=== PATIENT | female | born 1980 | race Caucasian/White ===

== ENCOUNTER 2016-09-02 22:15 | Emergency (ER) | payer OTHER ==
[~2016-09-02] VITALS: Ht 165.1 cm; Wt 64.9 kg
[~2016-09-02 22:15] MED LIST: AMIT10TA PO; AMIT25TA PO; CITA20TA9 PO; DIPH25CA58 PO; NORE-88 PO
[2016-09-02 23:00] LABS: BILIRUBIN,URINE NEGATIVE (NEG); GLUCOSE,URINE NEGATIVE (NEG); NITRITE,URINE NEGATIVE (NEG); PH,URINE 5.5; PROTEIN,URINE NEGATIVE (NEG-TRACE); UROBILINOGEN,URINE 0.2 mg/dL (0.2 mg/dL)
[2016-09-02 23:01] LABS: BASO % 0 % (0-3); EOS % 2 % (0-3); HEMATOCRIT 39.3 % (36.0-47.0); HEMOGLOBIN 13.3 g/dL (12.0-15.5); LYMPH # 5.4 x10^3/uL (1.0-4.8); LYMPH % 49 % (24-48); MEAN CORPUSCULAR HEMOGLOBIN 31 pg (25-35); MEAN CORPUSCULAR HGB CONC 34 g/dL (31-37); MEAN CORPUSCULAR VOLUME 92 fL (79-100); MONO % 5 % (0-9); NEUT % 43 % (31-73); PLATELET COUNT 205 x10^3/uL (140-400); RED BLOOD COUNT 4.26 x10^6/uL (3.50-5.40); RED CELL DISTRIBUTION WIDTH 12.4 % (11.5-14.5); WHITE BLOOD COUNT 11.2 x10^3/uL (4.0-11.0)
[2016-09-02 23:02] VITALS: BP 114/74
[2016-09-02 23:06] LABS: BACTERIA,URINE FEW /HPF (0-FEW); RBC,URINE 0 /HPF (0-2); SQUAMOUS EPITHELIAL CELL,UR MOD /LPF; WBC,URINE OCC /HPF (0-4)
[2016-09-02 23:11] LABS: CREATININE 0.9 mg/dL (0.6-1.0); GFR 71.7; POTASSIUM 3.5 mmol/L (3.5-5.1)
[2016-09-02] MEDS ORDERED: IV NORMAL SALINE 1000ML BAG 1,000 ML IV ONE (23:15)
[2016-09-02] MEDS ORDERED: traMADol 50 MG TABLET PO ONE (23:15)
[2016-09-02] MEDS ORDERED: ONDANSETRON PF 4 MG/2 ML VIAL. IV ONE (23:15)
[2016-09-02 23:17] LABS: ALBUMIN/GLOBULIN RATIO 1.1 (1.0-1.7); TOTAL BILIRUBIN 0.3 mg/dL (0.2-1.0); TOTAL PROTEIN 7.5 g/dL (6.4-8.2)
--- NOTE | 2016-09-03 | RAD ---
INDICATION: RIGHT FLANK PAIN X TONIGHT COMPARISON: May 03, 2014 TECHNIQUE: Axial CT images were obtained through the abdomen and pelvis without intravenous contrast. Limited assessment of solid organ structures and vasculature secondary to lack of intravenous contrast. One or more of the following individualized dose reduction techniques were utilized for this examination: 1. Automated exposure control; 2. Adjustment of the mA and/or kV according to patient size; 3. Use of iterative reconstruction technique. FINDINGS: Abdomen: Chest Base: Right lung base nodule again seen measuring approximately 9 mm. Vessels: Mild calcific atherosclerosis. Liver/Biliary: Mildly low attenuation. Pancreas: No peripancreatic edema. Spleen: Normal. Kidneys/Adrenal: No hydronephrosis. GI: No free air. No bowel dilation to suggest obstruction. Pelvis: Bladder: No definite adjacent inflammation. Small free fluid IMPRESSION: 1. No hydronephrosis. There are couple of calcifications within the pelvis bilaterally but suspect that this is from phleboliths given lack of more proximal hydronephrosis. 2. Redemonstration of 9 mm nodule at right lung base. 3. Low attenuation of the liver. Nonspecific but frequently secondary to fatty infiltration. 4. Small free fluid in pelvis. Electronically signed by: Tian Funes MD (09/02/2016 11:56 PM)
--- NOTE | 2016-09-03 00:20 | PHYS DOC ---
Past Medical History Past Medical History: Anxiety, Endometriosis, Kidney Stone, Other Additional Past Medical Histor: endometriosis Past Surgical History: Appendectomy, Cholecystectomy Additional Past Surgical Histo: endometriosis, lithrotrypsy Alcohol Use: None Drug Use: None Adult General Chief Complaint Chief Complaint: ABDOMINAL PAIN HPI HPI Patient is a 36 year old female with history significant for kidney stones in the past as well as endometriosis, cholecystectomy, appendectomy, status post C- section 6 months ago who presents here today complaining of lower back pain radiating to her groin that feels similar to her prior kidney stones in the past. Patient reports her last was approximately 2 years ago. Patient denies any other symptomatology at this time. Patient has any fevers shakes chills. Patient has any vomiting or diarrhea. Patient reports she does have some nausea and dysuria. Patient denies any frequency or urgency. Patient reports decreased urinary output. Patient has any hematuria but she reports that her urine has been dark. She physical exam was significant for tenderness to palpation to her right flank as well as pain radiating to her right groin region. Patient had normal active bowel sounds. Patient has no rebound or guarding. Patient does not present with any signs or symptoms of be consistent with an acute surgical abdomen. Assessment and plan Right flank pain of unclear etiology. Patient signed out AGAINST MEDICAL ADVICE prior to her test results being red. Patient's CT scan revealed no hydronephrosis no evidence of obstructive disease to her kidneys. Patient had really the insertion of her 9 mm nodule in her right lung base. There is no other acute pathology noted on the CT scan. Patient did leave prior to the CT scan report being red. Patient reported that she had severe intolerable pain to her right flank area. She was given Ultram to assist her with the pain however she reports that it did not help at all and is requesting something stronger. Patient reports that she is allergic to Toradol that makes her feel funny. I discussed with the patient that upon my evaluation of the CT scan I did not see any stone or any indication of be given narcotic pain medication at this point. I discussed with her that I think the pain that she's having is most likely secondary to mechanical strain and that I want to give her some Flexeril and ibuprofen in the ED as well as the same to go home with. I did tell her that I want to wait for the official CT report that is being read by the radiologist to make sure there wasn't any other pathology that is being missed. Shortly after having a discussion with the patient the patient told the nurse that she needed to leave AGAINST MEDICAL ADVICE because of some family emergency. Although not confirmed the do have some suspicion that the patient might be drug -seeking. I was not able to have a chance to reevaluate the patient prior to her leaving secondary to leaving abruptly. Review of Systems Review of Systems Constitutional: Denies fever or chills [] Eyes: Denies change in visual acuity, redness, or eye pain [] HENT: Denies nasal congestion or sore throat [] All other review systems are negative except as documented in the history of present illness portion. Current Medications Current Medications Current Medications Medications (Trade) Dose Ordered Sig/[facility] Start Time Stop Time Status Last Admin Dose Admin Ondansetron HCl (Zofran) 4 mg 1X ONCE 09/02/16 23:15 09/02/16 23:16 DC 09/02/16 23:00 4 MG Sodium Chloride 1,000 ml @ 1,000 mls/hr 1X ONCE 09/02/16 23:15 09/03/16 00:09 DC 09/02/16 23:00 1,000 MLS/HR Tramadol HCl (Ultram) 50 mg 1X ONCE 09/02/16 23:15 09/02/16 23:16 DC 09/02/16 23:00 50 MG Allergies Allergies Allergies Coded Allergies Type Severity Reaction Last Updated Verified iodine Allergy Intermediate 11/11/13 Yes ketorolac Allergy Intermediate 08/16/14 Yes morphine Allergy Intermediate 12/30/13 Yes Physical Exam Physical Exam Constitutional: Well developed, well nourished, no acute distress, non-toxic appearance. [] HENT: Normocephalic, atraumatic, bilateral external ears normal, oropharynx moist, no oral exudates, nose normal. [] Eyes: PERRLA, EOMI, conjunctiva normal, no discharge. [] Neck: Normal range of motion, no tenderness, supple, no stridor. [] Cardiovascular:Heart rate regular rhythm, Lungs & Thorax: Bilateral breath sounds clear to auscultation [] Abdomen: Bowel sounds normal, soft, no tenderness, no masses, no pulsatile masses. [] Skin: Warm, dry, no erythema, no rash. [] Extremities: No tenderness, no cyanosis, no clubbing, ROM intact, no edema. [] Neurologic: Alert and oriented X 3, normal motor function, normal sensory function, no focal deficits noted. [] Psychologic: Affect normal, judgement normal, mood normal. [] Current Patient Data Vital Signs Vital Signs Date Time Temp Pulse Resp B/P (MAP) Pulse Ox O2 Delivery O2 Flow Rate FiO2 09/02/16 23:02 88 20 114/74 (87) 97 Room Air 09/02/16 22:25 97.8 97.8 Lab Values Laboratory Tests Test 09/02/16 21:46 09/02/16 22:34 POC Urine HCG, Qualitative Hcg negative (Negative) White Blood Count 11.2 x10^3/uL (4.0-11.0) H Red Blood Count 4.26 x10^6/uL (3.50-5.40) Hemoglobin 13.3 g/dL (12.0-15.5) Hematocrit 39.3 % (36.0-47.0) Mean Corpuscular Volume 92 fL (79-100) Mean Corpuscular Hemoglobin 31 pg (25-35) Mean Corpuscular Hemoglobin Concent 34 g/dL (31-37) Red Cell Distribution Width 12.4 % (11.5-14.5) Platelet Count 205 x10^3/uL (140-400) Neutrophils (%) (Auto) 43 % (31-73) Lymphocytes (%) (Auto) 49 % (24-48) H Monocytes (%) (Auto) 5 % (0-9) Eosinophils (%) (Auto) 2 % (0-3) Basophils (%) (Auto) 0 % (0-3) Neutrophils # (Auto) 4.8 x10^3uL (1.8-7.7) Lymphocytes # (Auto) 5.4 x10^3/uL (1.0-4.8) H Monocytes # (Auto) 0.6 x10^3/uL (0.0-1.1) Eosinophils # (Auto) 0.3 x10^3/uL (0.0-0.7) Basophils # (Auto) 0.0 x10^3/uL (0.0-0.2) Urine Collection Type Unknown Urine Color Yellow Urine Clarity Clear Urine pH 5.5 Urine Specific [place] 1.025 Urine Protein Negative mg/dL (NEG-TRACE) Urine Glucose (UA) Negative mg/dL (NEG) Urine Ketones (Stick) Negative mg/dL (NEG) Urine Blood Negative (NEG) Urine Nitrite Negative (NEG) Urine Bilirubin Negative (NEG) Urine Urobilinogen Dipstick 0.2 mg/dL (0.2 mg/dL) Urine Leukocyte Esterase Negative (NEG) Urine RBC 0 /HPF (0-2) Urine WBC Occ /HPF (0-4) Urine Squamous Epithelial Cells Mod /LPF Urine Bacteria Few /HPF (0-FEW) Urine Mucus Marked /LPF Sodium Level 141 mmol/L (136-145) Potassium Level 3.5 mmol/L (3.5-5.1) Chloride Level 104 mmol/L (98-107) Carbon Dioxide Level 27 mmol/L (21-32) Anion Gap 10 (6-14) Blood Urea Nitrogen 12 mg/dL (7-20) Creatinine 0.9 mg/dL (0.6-1.0) Estimated GFR (Cockcroft-Gault) 71.7 BUN/Creatinine Ratio 13 (6-20) Glucose Level 85 mg/dL (70-99) Calcium Level 9.0 mg/dL (8.5-10.1) Total Bilirubin 0.3 mg/dL (0.2-1.0) Aspartate Amino Transferase (AST) 19 U/L (15-37) Alanine Aminotransferase (ALT) 32 U/L (14-59) Alkaline Phosphatase 62 U/L (46-116) Total Protein 7.5 g/dL (6.4-8.2) Albumin 4.0 g/dL (3.4-5.0) Albumin/Globulin Ratio 1.1 (1.0-1.7) Lipase 128 U/L (73-393) Laboratory Tests 09/02/16 22:34 Laboratory Tests 09/02/16 22:34 EKG EKG [] Radiology/Procedures Radiology/Procedures [] Course & Med Decision Making Course & Med Decision Making Pertinent Labs and Imaging studies reviewed. (See chart for details) [] Dragon Disclaimer Dragon Disclaimer This electronic medical record was generated, in whole or in part, using a voice recognition dictation system. Departure Departure Impression: Primary Impression: Left against medical advice Additional Impressions: Chronic flank pain Flank pain Disposition: 07 AGAINST MEDICAL ADVICE Condition: STABLE Problem Qualifiers SEPIDEH LOAIZA MD 18, 2017 00:20
== END 2016-09-03 00:09 | disposition left against medical advice (07) ==
LOC: ER 22:15
DX: G89.29 Other chronic pain (principal); R10.30 Lower abdominal pain, unspecified; M54.5 Low back pain; Z87.442 Personal history of urinary calculi; Z90.49 Acquired absence of other specified parts of digestive tract; Z88.5 Allergy status to narcotic agent; Z88.8 Allergy status to other drugs, medicaments and biological substances; Z91.041 Radiographic dye allergy status
CPT/HCPCS: 36415; 74176; 80053; 81001; 81025; 83690; 85027; 96361; 96374; 99285; J2405; J7030

== ENCOUNTER 2017-05-06 15:03 | Emergency (ER) | payer OTHER ==
[2017-05-06 17:20] LABS: ADD MAN DIFF? NO; BILIRUBIN,URINE SMALL (NEG); CLARITY,URINE CLEAR; COLOR,URINE AMBER; GLUCOSE,URINE NEGATIVE (NEG); NITRITE,URINE NEGATIVE (NEG); PROTEIN,URINE NEGATIVE (NEG-TRACE)
[2017-05-06 17:22] LABS: BASO % 1 % (0-3); EOS # 0.1 x10^3/uL (0.0-0.7); EOS % 1 % (0-3); HEMATOCRIT 42.3 % (36.0-47.0); HEMOGLOBIN 14.4 g/dL (12.0-15.5); LYMPH # 1.8 x10^3/uL (1.0-4.8); LYMPH % 19 % (24-48); MEAN CORPUSCULAR HEMOGLOBIN 31 pg (25-35); MEAN CORPUSCULAR HGB CONC 34 g/dL (31-37); MEAN CORPUSCULAR VOLUME 92 fL (79-100); MONO # 0.7 x10^3/uL (0.0-1.1); MONO % 7 % (0-9); NEUT # 6.7 x10^3uL (1.8-7.7); NEUT % 72 % (31-73); PLATELET COUNT 141 x10^3/uL (140-400); RED CELL DISTRIBUTION WIDTH 12.3 % (11.5-14.5); WHITE BLOOD COUNT 9.3 x10^3/uL (4.0-11.0)
[2017-05-06 17:32] LABS: BACTERIA,URINE 0 /HPF (0-FEW); SQUAMOUS EPITHELIAL CELL,UR MOD /LPF; WBC,URINE 0 /HPF (0-4)
[2017-05-06 17:35] LABS: NEG OBC UR NEG; POS OBC UR POS; U PREG PATIENT NEGATIVE (NEG)
[2017-05-06 17:38] LABS: ANION GAP 7 (6-14); BLOOD UREA NITROGEN 7 mg/dL (7-20); BUN/CREATININE RATIO 9 (6-20); CALCIUM 8.6 mg/dL (8.5-10.1); CARBON DIOXIDE 27 mmol/L (21-32); CHLORIDE 103 mmol/L (98-107); CREATININE 0.8 mg/dL (0.6-1.0); GFR 82.1; GLUCOSE 97 mg/dL (70-99); POTASSIUM 3.9 mmol/L (3.5-5.1); SODIUM 137 mmol/L (136-145)
[2017-05-06 17:43] LABS: INFLUENZA A PATIENT NEGATIVE (NEGATIVE); INFLUENZA B PATIENT NEGATIVE (NEGATIVE); OBC FLU VALID
[2017-05-06 17:46] LABS: ALBUMIN 3.8 g/dL (3.4-5.0); ALBUMIN/GLOBULIN RATIO 1.1 (1.0-1.7); ALK PHOS 97 U/L (46-116); ALT (SGPT) 65 U/L (14-59); AST (SGOT) 29 U/L (15-37); TOTAL BILIRUBIN 0.5 mg/dL (0.2-1.0); TOTAL PROTEIN 7.3 g/dL (6.4-8.2)
[2017-05-06] MEDS: fentaNYL PF VIAL 100 MCG/2 ML VIAL IM ×2 (18:13)
[2017-05-06] MEDS: DEXAMETHASONE SOD PHOS 4 MG/ML VIAL IM ×2 (18:49)
== END 2017-05-06 19:01 | disposition home or self-care (01) ==
LOC: ER 15:03
DX: J32.9 Chronic sinusitis, unspecified (principal); Z88.5 Allergy status to narcotic agent; Z88.6 Allergy status to analgesic agent; Z91.041 Radiographic dye allergy status
CPT/HCPCS: 36415; 70486; 80053; 81001; 81025; 85025; 87804; 87804-59; 96372; 99285-25; J1100; J3010

== ENCOUNTER 2017-09-09 22:43 | Emergency (ER) | payer OTHER ==
[2017-09-10] MEDS: LIDOCAINE WITH 8.4% SOD BICARB 3 ML DISP.SYRIN. INJ (00:40)
[2017-09-10] MEDS: DIPHTH,PERTUSS(ACELL),TET TOX 0.5 ML DISP.SYRIN. VAX IM (00:42)
== END 2017-09-10 01:22 | disposition home or self-care (01) ==
LOC: ER 09-10 01:22
DX: S61.211A Laceration without foreign body of left index finger without damage to nail, initial encounter (principal); S61.213A Laceration without foreign body of left middle finger without damage to nail, initial encounter; S40.212A Abrasion of left shoulder, initial encounter; Z88.5 Allergy status to narcotic agent; Z88.8 Allergy status to other drugs, medicaments and biological substances; Z91.041 Radiographic dye allergy status; W54.0XXA Bitten by dog, initial encounter; Y93.89 Activity, other specified; Y99.8 Other external cause status; Y92.89 Other specified places as the place of occurrence of the external cause
CPT/HCPCS: 12001; 90471; 90715; 99283-25

== ENCOUNTER 2018-10-14 14:37 | Emergency (ER) | payer BC, OTHER ==
[~2018-10-14] VITALS: Ht 165.1 cm; Wt 65.3 kg
[~2018-10-14 14:37] MED LIST changes: +AMOX1TAB61 PO; +PRED50TA PO
[2018-10-14 14:54] VITALS: BP 113/73
[2018-10-14 15:19] LABS: BILIRUBIN,URINE NEGATIVE (NEG); CLARITY,URINE CLEAR; COLOR,URINE YELLOW; NITRITE,URINE NEGATIVE (NEG); PH,URINE 6.5; PROTEIN,URINE NEGATIVE (NEG-TRACE)
--- NOTE | 2018-10-14 15:25 | PHYS DOC ---
Past Medical History Past Medical History: Anxiety, Endometriosis, Kidney Stone Additional Past Medical Histor: endometriosis Past Surgical History: Appendectomy, Cholecystectomy, , Tonsillectomy Additional Past Surgical Histo: endometriosis, lithrotrypsy Alcohol Use: None Drug Use: None Adult General Chief Complaint Chief Complaint: PAIN ON URINATION [facility] HPI Patient is a 38 year old female presents to ED complaining of right flank pain since last night. States she woke up with pain to her right flank. Describes the pain as sharp. Rates the pain as 9 out of 10. Patient states she has a history of kidney stones. Associated symptoms include urinary urgency and nausea. Denies hematuria, dysuria, STD exposure, chest pain, shortness of breath, fever, chills or vomiting. Review of Systems Review of Systems Constitutional: Denies fever or chills [] Eyes: Denies change in visual acuity, redness, or eye pain [] HENT: Denies nasal congestion or sore throat [] Respiratory: Denies cough or shortness of breath [] Cardiovascular: No additional information not addressed in HPI [] GI: Planes of abdominal pain and right flank pain. nausea, vomiting, bloody stools or diarrhea [] : Denies dysuria or hematuria [] Musculoskeletal: Denies back pain or joint pain [] Integument: Denies rash or skin lesions [] Neurologic: Denies headache, focal weakness or sensory changes [] All other systems were reviewed and found to be within normal limits, except as documented in this note. Current Medications Current Medications Current Medications Medications (Trade) Dose Ordered Sig/[facility] Start Time Stop Time Status Last Admin Dose Admin Fentanyl Citrate (Fentanyl 2ml Vial) 75 mcg 1X ONCE 10/14/18 16:45 10/14/18 16:46 DC 10/14/18 16:42 75 MCG Morphine Sulfate (Morphine Sulfate) 4 mg 1X ONCE 10/14/18 15:30 10/14/18 15:30 DC Ondansetron HCl (Zofran) 4 mg 1X ONCE 10/14/18 15:30 10/14/18 15:31 DC 10/14/18 15:41 4 MG Allergies Allergies Allergies Coded Allergies Type Severity Reaction Last Updated Verified iodine Allergy Intermediate 11/11/13 Yes ketorolac Allergy Intermediate 08/16/14 Yes morphine Allergy Intermediate 12/30/13 Yes Physical Exam Physical Exam Constitutional: Well developed, well nourished, no acute distress, non-toxic appearance. [] HENT: Normocephalic, atraumatic Eyes: PERRLA, EOMI, conjunctiva normal, no discharge. [] Neck: Normal range of motion, no tenderness, supple, no stridor. [] Cardiovascular:Heart rate regular rhythm, no murmur [] Lungs & Thorax: Bilateral breath sounds clear to auscultation [] Abdomen: Bowel sounds normal, soft, no tenderness, no masses, no pulsatile masses. [] Skin: Warm, dry, no erythema, no rash. [] Back: No tenderness, Mild right CVA tenderness. [] Extremities: No tenderness, no cyanosis, no clubbing, ROM intact, no edema. [] Neurologic: Alert and oriented X 3, normal motor function, normal sensory function, no focal deficits noted. [] Psychologic: Affect normal, judgement normal, mood normal. [] Current Patient Data Vital Signs Vital Signs Date Time Temp Pulse Resp B/P (MAP) Pulse Ox O2 Delivery O2 Flow Rate FiO2 10/14/18 14:54 98.2 95 18 113/73 (86) 99 Room Air 98.2 Lab Values Laboratory Tests Test 10/14/18 15:05 10/14/18 15:30 Urine Collection Type Unknown Urine Color Yellow Urine Clarity Clear Urine pH 6.5 Urine Specific [place] 1.025 Urine Protein Negative mg/dL (NEG-TRACE) Urine Glucose (UA) Negative mg/dL (NEG) Urine Ketones (Stick) Negative mg/dL (NEG) Urine Blood Negative (NEG) Urine Nitrite Negative (NEG) Urine Bilirubin Negative (NEG) Urine Urobilinogen Dipstick 1.0 mg/dL (0.2 mg/dL) Urine Leukocyte Esterase Negative (NEG) Urine RBC Rare /HPF (0-2) Urine WBC Rare /HPF (0-4) Urine Squamous Epithelial Cells Mod /LPF Urine Bacteria Few /HPF (0-FEW) Urine Mucus Marked /LPF Urine Test Negative (NEG) White Blood Count 10.4 x10^3/uL (4.0-11.0) Red Blood Count 4.53 x10^6/uL (3.50-5.40) Hemoglobin 14.5 g/dL (12.0-15.5) Hematocrit 42.7 % (36.0-47.0) Mean Corpuscular Volume 94 fL (79-100) Mean Corpuscular Hemoglobin 32 pg (25-35) Mean Corpuscular Hemoglobin Concent 34 g/dL (31-37) Red Cell Distribution Width 12.1 % (11.5-14.5) Platelet Count 180 x10^3/uL (140-400) Neutrophils (%) (Auto) 51 % (31-73) Lymphocytes (%) (Auto) 38 % (24-48) Monocytes (%) (Auto) 7 % (0-9) Eosinophils (%) (Auto) 3 % (0-3) Basophils (%) (Auto) 1 % (0-3) Neutrophils # (Auto) 5.3 x10^3/uL (1.8-7.7) Lymphocytes # (Auto) 4.0 x10^3/uL (1.0-4.8) Monocytes # (Auto) 0.7 x10^3/uL (0.0-1.1) Eosinophils # (Auto) 0.3 x10^3/uL (0.0-0.7) Basophils # (Auto) 0.1 x10^3/uL (0.0-0.2) Sodium Level 142 mmol/L (136-145) Potassium Level 4.4 mmol/L (3.5-5.1) Chloride Level 104 mmol/L (98-107) Carbon Dioxide Level 31 mmol/L (21-32) Anion Gap 7 (6-14) Blood Urea Nitrogen 12 mg/dL (7-20) Creatinine 0.9 mg/dL (0.6-1.0) Estimated GFR (Cockcroft-Gault) 70.8 BUN/Creatinine Ratio 13 (6-20) Glucose Level 101 mg/dL (70-99) H Calcium Level 9.6 mg/dL (8.5-10.1) Total Bilirubin 0.6 mg/dL (0.2-1.0) Aspartate Amino Transferase (AST) 23 U/L (15-37) Alanine Aminotransferase (ALT) 43 U/L (14-59) Alkaline Phosphatase 82 U/L (46-116) Total Protein 7.5 g/dL (6.4-8.2) Albumin 4.2 g/dL (3.4-5.0) Albumin/Globulin Ratio 1.3 (1.0-1.7) Laboratory Tests 7/29/19 15:30 Laboratory Tests 10/14/18 15:30 EKG EKG [] Radiology/Procedures Radiology/Procedures []HISTORY: Flank pain. TECHNIQUE: Computed tomographic images of the abdomen and pelvis were obtained without contrast. Multiplanar reformatting was performed. *One or more of the following individualized dose reduction techniques were utilized for this examination: 1. Automated exposure control. 2. Adjustment of the mA and/or kV according to patient size. 3. Use of iterative reconstruction technique. COMPARISON: 09/02/2018 and 09/02/2016. FINDINGS: Evaluation of the lower thorax demonstrates posterior dependent and basilar atelectasis. There are 10 mm and 5 mm nodular opacities at the right lung base. The heart is normal in size. There is hepatic steatosis. There is focal fatty infiltration of the liver along the falciform ligament. The gallbladder is surgically absent. The pancreas is unremarkable. The spleen is upper normal in size. The adrenal glands are unremarkable. There is no evidence of hydronephrosis or hydroureter. No renal or ureteral stone is seen. The appendix is surgically absent. There is no evidence of bowel obstruction or abnormal bowel wall thickening. There is no lymphadenopathy. There is an intrauterine contraceptive device. There are multiple ovarian follicles and there is a small amount of nonspecific pelvic free fluid. This is within physiologic limits. There is a 1.5 cm fat density lesion with slight peripheral calcification or suture material within the pelvis to the right of midline along the sigmoid colon. IMPRESSION: 1. No evidence of nephroureterolithiasis or obstructive uropathy. 2. Multiple prominent ovarian follicles and nonspecific pelvic free fluid, within physiologic limits for a premenopausal female. 3. 1.5 cm fat density lesion with slight surrounding calcification or suture material within the pelvis to the right of midline adjacent to the sigmoid colon. This may be due to fat necrosis, sequela of epiploic appendagitis, or a fat density lesion such as a lipoma. This appears to be separate from the uterus and ovaries. The 2 year course of stability favors benignity. 4. Stable pulmonary nodules at the right lung base. These are stable compared to 01/01/2013. The long-term stability favors benignity. Course & Med Decision Making Course & Med Decision Making Pertinent Labs and Imaging studies reviewed. (See chart for details) []Discussed lab and imaging findings with patient. Patient's pain improved in the ED. States she is feeling much better. On reexamination, abdomen is soft nontender nondistended. No peritoneal signs. Tolerating by mouth. Discussed symptomatic treatment and follow-up with PCP outpatient this week. Provided contact information/education. Discussed reasons to return to the ED. Patient understands and agrees with plan. Dragon Disclaimer Dragon Disclaimer This electronic medical record was generated, in whole or in part, using a voice recognition dictation system. Departure Departure Impression: Primary Impression: Flank pain Additional Impression: Ovarian cyst Disposition: 01 HOME, SELF-CARE Condition: IMPROVED Referrals: NO PCP (PCP) GARRICK FISHER MD Patient Instructions: Flank Pain Problem Qualifiers GISSELLE HOLLIDAY Oct 14, 2018 15:25
[2018-10-14 15:27] LABS: BACTERIA,URINE FEW /HPF (0-FEW); RBC,URINE RARE /HPF (0-2); SQUAMOUS EPITHELIAL CELL,UR MOD /LPF; WBC,URINE RARE /HPF (0-4)
[2018-10-14] MEDS ORDERED: fentaNYL PF VIAL 100 MCG/2 ML VIAL IV ONE ×2 (15:30→16:45)
[2018-10-14] MEDS ORDERED: MORPHINE SULFATE 4 MG/ML VIAL. IV ONE (15:30)
[2018-10-14] MEDS ORDERED: ONDANSETRON PF 4 MG/2 ML VIAL. IV ONE (15:30)
[2018-10-14 15:39] LABS: BASO # 0.1 x10^3/uL (0.0-0.2); BASO % 1 % (0-3); EOS # 0.3 x10^3/uL (0.0-0.7); EOS % 3 % (0-3); HEMATOCRIT 42.7 % (36.0-47.0); HEMOGLOBIN 14.5 g/dL (12.0-15.5); LYMPH % 38 % (24-48); MEAN CORPUSCULAR HEMOGLOBIN 32 pg (25-35); MEAN CORPUSCULAR HGB CONC 34 g/dL (31-37); MEAN CORPUSCULAR VOLUME 94 fL (79-100); MONO # 0.7 x10^3/uL (0.0-1.1); MONO % 7 % (0-9); NEUT # 5.3 x10^3/uL (1.8-7.7); NEUT % 51 % (31-73); PLATELET COUNT 180 x10^3/uL (140-400); RED BLOOD COUNT 4.53 x10^6/uL (3.50-5.40); RED CELL DISTRIBUTION WIDTH 12.1 % (11.5-14.5); WHITE BLOOD COUNT 10.4 x10^3/uL (4.0-11.0)
[2018-10-14 15:55] LABS: CALCIUM 9.6 mg/dL (8.5-10.1); CREATININE 0.9 mg/dL (0.6-1.0); GFR 70.8; POTASSIUM 4.4 mmol/L (3.5-5.1)
[2018-10-14 16:00] LABS: ALBUMIN 4.2 g/dL (3.4-5.0); ALBUMIN/GLOBULIN RATIO 1.3 (1.0-1.7); TOTAL BILIRUBIN 0.6 mg/dL (0.2-1.0); TOTAL PROTEIN 7.5 g/dL (6.4-8.2)
[2018-10-14 16:36] LABS: U PREG PATIENT NEGATIVE (NEG)
--- NOTE | 2018-10-14 17:12 | RAD ---
EXAM: Abdomen and pelvis CT without intravenous contrast. HISTORY: Flank pain. TECHNIQUE: Computed tomographic images of the abdomen and pelvis were obtained without contrast. Multiplanar reformatting was performed. *One or more of the following individualized dose reduction techniques were utilized for this examination: 1. Automated exposure control. 2. Adjustment of the mA and/or kV according to patient size. 3. Use of iterative reconstruction technique. COMPARISON: 09/02/2018 and 09/02/2016. FINDINGS: Evaluation of the lower thorax demonstrates posterior dependent and basilar atelectasis. There are 10 mm and 5 mm nodular opacities at the right lung base. The heart is normal in size. There is hepatic steatosis. There is focal fatty infiltration of the liver along the falciform ligament. The gallbladder is surgically absent. The pancreas is unremarkable. The spleen is upper normal in size. The adrenal glands are unremarkable. There is no evidence of hydronephrosis or hydroureter. No renal or ureteral stone is seen. The appendix is surgically absent. There is no evidence of bowel obstruction or abnormal bowel wall thickening. There is no lymphadenopathy. There is an intrauterine contraceptive device. There are multiple ovarian follicles and there is a small amount of nonspecific pelvic free fluid. This is within physiologic limits. There is a 1.5 cm fat density lesion with slight peripheral calcification or suture material within the pelvis to the right of midline along the sigmoid colon. IMPRESSION: 1. No evidence of nephroureterolithiasis or obstructive uropathy. 2. Multiple prominent ovarian follicles and nonspecific pelvic free fluid, within physiologic limits for a premenopausal female. 3. 1.5 cm fat density lesion with slight surrounding calcification or suture material within the pelvis to the right of midline adjacent to the sigmoid colon. This may be due to fat necrosis, sequela of epiploic appendagitis, or a fat density lesion such as a lipoma. This appears to be separate from the uterus and ovaries. The 2 year course of stability favors benignity. 4. Stable pulmonary nodules at the right lung base. These are stable compared to 01/01/2013. The long-term stability favors benignity. Electronically signed by: Kelin Gusman MD (10/14/2018 5:09 PM) [facility]
== END 2018-10-14 17:46 | disposition home or self-care (01) ==
LOC: ER 14:37
DX: N83.201 Unspecified ovarian cyst, right side (principal); Z87.442 Personal history of urinary calculi; Z90.89 Acquired absence of other organs; Z90.49 Acquired absence of other specified parts of digestive tract; Z98.890 Other specified postprocedural states; Z88.5 Allergy status to narcotic agent; Z88.6 Allergy status to analgesic agent; Z88.8 Allergy status to other drugs, medicaments and biological substances
CPT/HCPCS: 36415; 74176; 80053; 81001; 81025; 85025; 96374; 96375; 96376; 99285; J2405; J3010

== ENCOUNTER 2019-12-10 20:49 | Emergency (ER) | payer BC, OTHER ==
[~2019-12-10] VITALS: Ht 165.1 cm; Wt 72.0 kg
[2019-12-10 21:29] LABS: BILIRUBIN,URINE NEGATIVE (NEG); CLARITY,URINE CLEAR; COLOR,URINE YELLOW; NITRITE,URINE NEGATIVE (NEG); PH,URINE 6.5 (<5.0-8.0); PROTEIN,URINE NEGATIVE (NEG-TRACE)
[2019-12-10 21:35] LABS: BACTERIA,URINE MODERATE /HPF (0-FEW); SQUAMOUS EPITHELIAL CELL,UR MANY /LPF
[2019-12-10 21:36] LABS: WBC,URINE 0 /HPF (0-4)
[2019-12-10 22:22] VITALS: BP 104/70
== END 2019-12-10 22:23 | disposition left against medical advice (07) ==
LOC: ER 20:49
DX: R10.9 Unspecified abdominal pain (principal); Z53.21 Procedure and treatment not carried out due to patient leaving prior to being seen by health care provider
CPT/HCPCS: 81001; 81025; 87086

== ENCOUNTER 2020-10-14 22:20 | Emergency (ER) | payer BC ==
[~2020-10-14] VITALS: Ht 165.1 cm; Wt 68.8 kg
--- NOTE | 2020-10-15 01:19 | ED.ADGEN ---
Past Medical History Past Medical History: Anxiety, Endometriosis, Kidney Stone Additional Past Medical Histor: endometriosis,LITHOTRIPSY X 3, URETHRAL OBSTRUCTIONS Past Surgical History: Appendectomy, Cholecystectomy, , Tonsillectomy Additional Past Surgical Histo: endometriosis, lithrotrypsy Smoking Status: Current Every Day Smoker Alcohol Use: None Drug Use: None General Adult EDM: Chief Complaint: FLANK PAIN HPI: HPI: Patient is a 40 year old female presenting with 2 days of left flank pain. Patient is a little bit dysuria but is unsure if she had any hematuria. Patient states her significant for multiple kidney stones and 3 lithotripsies. Patient states her last lithotripsy and stone was about 5 years ago. Patient states she not has not had one, on this past. Denies any fevers, diarrhea or constipation. Patient states she has had some nausea but no vomiting. Has had both of her Covid vaccinations. No other medical history. Review of Systems: Review of Systems: All other systems within normal limits except for as noted in the HPI Current Medications: Current Medications Medications (Trade) Dose Ordered Sig/Darrell Start Time Stop Time Status Last Admin Dose Admin Fentanyl Citrate (Fentanyl 2ml Vial) 75 mcg 1X ONCE 10/15/20 01:30 10/15/20 01:31 DC 10/15/20 01:42 75 MCG Hydromorphone HCl (Dilaudid) 1 mg 1X ONCE 10/15/20 03:00 10/15/20 03:01 Ondansetron HCl (Zofran) 4 mg 1X ONCE 10/15/20 01:30 10/15/20 01:31 DC 10/15/20 01:42 4 MG Orphenadrine Citrate (Norflex) 60 mg 1X ONCE 10/15/20 03:00 10/15/20 03:01 Allergies: Allergies: Allergies Coded Allergies Type Severity Reaction Last Updated Verified iodine Allergy Intermediate 11/11/13 Yes ketorolac Allergy Intermediate 08/16/14 Yes morphine Allergy Intermediate 12/30/13 Yes Physical Exam: PE: Constitutional: Well developed, well nourished, mild acute distress, non-toxic appearance. [] HENT: Normocephalic, atraumatic, bilateral external ears normal, nose normal. [] Eyes: PERRLA, conjunctiva normal, no discharge. [] Neck: No rigidity, supple, no stridor. [] Cardiovascular: Regular rate and rhythm, brisk cap refill [] Lungs & Thorax: Non labored symmetric respirations, no tachypnea or respiratory distress [] Abdomen: Soft, nondistended. Skin: Warm, dry, no erythema, no rash. [] Back: Unremarkable, left CVA tenderness Extremities: No deformities, range of motion grossly intact, no lower extremity edema [] Neurologic: Alert and oriented X 3, no focal deficits noted. [] Psychologic: Affect normal, judgement normal, mood normal. [] Current Patient Data: Labs: Laboratory Tests Test 10/15/20 00:05 10/15/20 00:24 Urine Collection Type Unknown Urine Color Yellow Urine Clarity Clear Urine pH 5.5 (<5.0-8.0) Urine Specific [place] 1.025 (1.000-1.030) Urine Protein Negative mg/dL (NEG-TRACE) Urine Glucose (UA) Negative mg/dL (NEG) Urine Ketones (Stick) Negative mg/dL (NEG) Urine Blood Trace (NEG) Urine Nitrite Negative (NEG) Urine Bilirubin Negative (NEG) Urine Urobilinogen Dipstick 0.2 mg/dL (0.2 mg/dL) Urine Leukocyte Esterase Negative (NEG) Urine RBC Rare /HPF (0-2) Urine WBC Rare /HPF (0-4) Urine Squamous Epithelial Cells Mod /LPF Urine Bacteria 0 /HPF (0-FEW) Urine Mucus Mod /LPF POC Urine HCG, Qualitative Hcg negative (Negative) Vital Signs: Vital Signs Date Time Temp Pulse Resp B/P (MAP) Pulse Ox O2 Delivery O2 Flow Rate FiO2 10/15/20 01:42 98 10/14/20 23:54 98.3 97 22 119/81 (81) Room Air 98.3 EKG: EKG: [] Heart Score: C/O Chest Pain: No Risk Factors: Risk Factors: DM, Current or recent (<one month) smoker, HTN, HLP, family history of CAD, obesity. Risk Scores: Score 0 - 3: 2.5% MACE over next 6 weeks - Discharge Home Score 4 - 6: 20.3% MACE over next 6 weeks - Admit for Clinical Observation Score 7 - 10: 72.7% MACE over next 6 weeks - Early Invasive Strategies Radiology/Procedures: Radiology/Procedures: [facility] [address] [place] [address] IMAGING REPORT Signed PATIENT: CARLOS BRIDGES ACCOUNT: [id number] : 1980 LOCATION: ER AGE: 40 SEX: F EXAM STATUS: REG ER ORD. PHYSICIAN: ULISES JUAREZ MD REASON: left flank pain, stone study PROCEDURE: CT ABDOMEN PELVIS WO CONTRAST EXAMINATION: CT abdomen and pelvis without IV contrast. INDICATION:40 years, Female, left flank pain. TECHNIQUE: Axial CT images of the abdomen and pelvis were obtained. Coronal and sagittal reformatted performed. COMPARISON: 10/14/2018 and 06/12/2013 Exposure: One or more of the following individualized dose reduction techniques were utilized for this examination: 1. Automated exposure control 2. Adjustment of the mA and/or kV according to patient size 3. Use of iterative reconstruction technique. FINDINGS: LOWER CHEST: Redemonstrated 0.7 cm pleural-based nodule in the right lower lobe, unchanged since 2013 most likely benign pathology such as focal scarring. ABDOMEN/PELVIS: Within the limitation of noncontrast exam, Liver, spleen, pancreas, and other glands are unremarkable. Cholecystectomy. No biliary ductal dilation. No hydronephrosis or nephrolithiasis in either kidney. No bowel obstruction or wall thickening. Appendectomy. Normal caliber abdominal aorta. No pneumoperitoneum or ascites. No abdominopelvic lymphadenopathy by size criteria. Unremarkable urinary bladder. Anteverted uterus with IUD in place. No suspicious pelvic masses. MUSCULOSKELETAL: No acute osseous process. Postsurgical changes along the lower anterior abdominal wall. Calcified injection granulomas in the right gluteal subcutaneous fat. IMPRESSION: No obstructive uropathy or urolithiasis. Electronically signed by: Jimi Velarde MD (10/15/2020 2:03 AM) [facility] DICTATED and SIGNED BY: JIMI VELARDE MD DATE: 10/15/20 [id number] [] Course & Med Decision Making: Course & Med Decision Making Discussed patient with flank pain could be attributed to a stone is already passed recently versus back muscle strain. Dragon Disclaimer: Dragon Disclaimer: This electronic medical record was generated, in whole or in part, using a voice recognition dictation system. Departure Departure Impression: Primary Impression: Left flank pain Disposition: HOME / SELF CARE / HOMELESS Condition: STABLE Referrals: ELVIRA ARRINGTON (PCP) Patient Instructions: Flank Pain Scripts Cyclobenzaprine Hcl (CYCLOBENZAPRINE HCL) 10 Mg Tablet 1 TAB PO TID PRN for MUSCLE SPASMS for 5 Days, #15 TAB Prov: ULISES JUAREZ MD 10/15/20 ULISES JUAREZ MD Oct 15, 2020 01:19
[2020-10-15 01:24] LABS: BILIRUBIN,URINE NEGATIVE (NEG); CLARITY,URINE CLEAR; COLOR,URINE YELLOW; NITRITE,URINE NEGATIVE (NEG); PH,URINE 5.5 (<5.0-8.0); PROTEIN,URINE NEGATIVE (NEG-TRACE); UROBILINOGEN,URINE 0.2 mg/dL (0.2 mg/dL)
[2020-10-15 01:30] LABS: BACTERIA,URINE 0 /HPF (0-FEW); RBC,URINE RARE /HPF (0-2); WBC,URINE RARE /HPF (0-4)
[2020-10-15] MEDS ORDERED: fentaNYL PF VIAL 100 MCG/2 ML VIAL IVP ONE (01:30)
[2020-10-15] MEDS ORDERED: ONDANSETRON PF 4 MG/2 ML VIAL. IVP ONE (01:30)
--- NOTE | 2020-10-15 02:05 | RAD ---
EXAMINATION: CT abdomen and pelvis without IV contrast. INDICATION:40 years, Female, left flank pain. TECHNIQUE: Axial CT images of the abdomen and pelvis were obtained. Coronal and sagittal reformatted performed. COMPARISON: 10/14/2018 and 06/12/2013 Exposure: One or more of the following individualized dose reduction techniques were utilized for thi s examination: 1. Automated exposure control 2. Adjustment of the mA and/or kV according to patient size 3. Use of iterative reconstruction technique. FINDINGS: LOWER CHEST: Redemonstrated 0.7 cm pleural-based nodule in the right lower lobe, unchanged since 2013 most likely benign pathology such as focal scarring. ABDOMEN/PELVIS: Within the limitation of noncontrast exam, Liver, spleen, pancreas, and other glands are unremarkable. Cholecystectomy. No biliary ductal dilati on. No hydronephrosis or nephrolithiasis in either kidney. No bowel obstruction or wall thickening. A ppendectomy. Normal caliber abdominal aorta. No pneumoperitoneum or ascites. No abdominopelvic lympha denopathy by size criteria. Unremarkable urinary bladder. Anteverted uterus with IUD in place. No carly picious pelvic masses. MUSCULOSKELETAL: No acute osseous process. Postsurgical changes along the lower anterior abdominal wall. Calcified inj ection granulomas in the right gluteal subcutaneous fat. IMPRESSION: No obstructive uropathy or urolithiasis. Electronically signed by: Sharif Velarde MD (10/15/2020 2:03 AM) [facility]
[2020-10-15 02:19] VITALS: BP 129/69
[2020-10-15] MEDS ORDERED: CYCL10TA2 PO (02:37)
[2020-10-15] MEDS ORDERED: HYDROmorphone 2 MG/ML VIAL IVP ONE (03:00)
[2020-10-15] MEDS ORDERED: ORPHENADRINE CITRATE 60 MG/2 ML VIAL. IM ONE (03:00)
== END 2020-10-15 02:50 | disposition home or self-care (01) ==
LOC: ER 22:20
DX: R10.9 Unspecified abdominal pain (principal); R30.0 Dysuria; R11.0 Nausea; F17.200 Nicotine dependence, unspecified, uncomplicated; Z87.442 Personal history of urinary calculi; Z90.49 Acquired absence of other specified parts of digestive tract; Z90.89 Acquired absence of other organs; Z98.890 Other specified postprocedural states; Z88.8 Allergy status to other drugs, medicaments and biological substances; Z88.5 Allergy status to narcotic agent
CPT/HCPCS: 74176; 81001; 81025; 96372; 96374; 96375; 99284; J1170; J2360; J2405; J3010